=== PATIENT | female | born 1945 | race African-American/Black ===

== ENCOUNTER 2021-12-07 13:35 | Emergency (ER) | payer OTHER, SELFPAY ==
[2021-12-07 13:47] VITALS: BP 129/71; PULSE 83; RESP 16; TEMP 36.9; O2SAT 99
--- NOTE | 2021-12-07 13:55 | ED.GENADULT ---
HPI - General Adult General Chief complaint: Headache Stated complaint: Headache/Weakness Time Seen by Provider: 12/07/21 14:02 Source: patient and RN notes reviewed Mode of arrival: ambulatory Limitations: no limitations History of Present Illness HPI narrative: 76-year-old female presented for complaint of malaise, body aches, sinus pressure/congestion, chills. Worsening over the past 4 days. She is not vaccinated for Covid or flu. 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 She denies nausea, vomiting, diarrhea, chest pain, shortness of breath or wheezing. She endorses a history of pneumonia several times per year, but denies similar symptoms at this time. Has not taken anything for symptoms and declines to do so. Related Data Home Medications Medication Instructions Recorded Confirmed No Home Medications 12/07/21 12/07/21 Allergies Allergy/AdvReac Type Severity Reaction Status Date / Time No Known Allergies Allergy Verified 12/07/21 14:07 Review of Systems Review of Systems: CONSTITUTIONAL: Endorses malaise, chills EYES: Denies visual changes, redness, or discharge ENT: Reports rhinorrhea, congestion denies sinus pain, otalgia, sore throat CARDIOVASCULAR: Denies chest pain, palpitations, edema RESPIRATORY:Reports post nasal drainage. Denies dyspnea, cough GASTROINTESTINAL: Denies abdominal pain, nausea, vomiting, diarrhea SKIN: Denies rash or itching MUSCULOSKELETAL: Endorses myalgia NEUROLOGIC: Denies headache Exam Narrative: GENERAL: Ill-appearing, no acute distress. HEAD: Normocephalic EYES: PERRLA, conjunctivae clear ENT: Mucous membranes moist. TM pearly dash with dull light reflex bilaterally; no tragal tenderness. Oropharynx erythematous without lesions or exudate, no drooling, no hoarseness, no trismus, uvula midline. NECK: Supple. No lymphadenopathy CHEST: Clear to auscultation, breath sounds equal. No wheezing, rhonchi, rales, or stridor. No respiratory distress, speaks in full sentences. HEART: Regular rate and rhythm. No murmur heard. SKIN: Warm, dry, no rash. NEURO: Alert and oriented x3. PSYCH: Normal mood and affect Course Course Emergency Course: covid and flu neg, PCR sent Patient is aware of diagnosis, understands and agrees to treatment plan. Anticipatory guidance given. Patient agrees to follow-up as directed and is aware of reasons to seek care at the emergency department. Portions of this record may have been created with voice recognition software Level of Care: Express Care Visit Vital Signs Vital signs: Vital Signs Temperature 98.5 F 12/07/21 13:47 Pulse Rate 83 12/07/21 13:47 Respiratory Rate 16 12/07/21 13:47 Blood Pressure 129/71 12/07/21 13:47 Pulse Oximetry 99 12/07/21 13:47 Temperature 98.5 F 12/07/21 13:47 Pulse Rate 83 12/07/21 13:47 Respiratory Rate 16 12/07/21 13:47 Blood Pressure 129/71 12/07/21 13:47 Pulse Oximetry 99 12/07/21 13:47 reviewed Medical Decision Making Differential Diagnosis Differential Diagnosis: influenza, covid, sinusitis, OM, strep pharyngitis, URI Vital Signs Vital Signs: Vital Signs Temperature 98.5 F 12/07/21 13:47 Pulse Rate 83 12/07/21 13:47 Respiratory Rate 16 12/07/21 13:47 Blood Pressure 129/71 12/07/21 13:47 Pulse Oximetry 99 12/07/21 13:47 Temperature 98.5 F 12/07/21 13:47 Pulse Rate 83 12/07/21 13:47 Respiratory Rate 16 12/07/21 13:47 Blood Pressure 129/71 12/07/21 13:47 Pulse Oximetry 99 12/07/21 13:47 Lab Data Labs: Influenza A Screen Negative Reference Range: Negative Influenza B Screen Negative Reference Range: Negative Discharge Plan Discharge Clinical Impression: URI (upper respiratory infection) Qualifiers: URI type: unspecified URI Qualified Code(s): J06.9 - Acute upper respiratory infection, unspecified Pat
[2021-12-08 17:38] LABS: SARS-CoV-2 RNA PCR Negative
== END 2021-12-07 14:30 | disposition home or self-care (01) ==
PROVIDERS: Emergency Provider Nurse Practitioner Family
DX: J06.9 Acute upper respiratory infection, unspecified (principal); Z20.822 Contact with and (suspected) exposure to COVID-19
CPT/HCPCS: 87426; 87804; 99213; C9803; G0463; U0003; U0005

== ENCOUNTER 2024-08-06 16:41 | Outpatient (CLI) | payer OTHER, SELFPAY ==
--- NOTE | ~2024-08-06 | XR_ITS ---
[id number] Ordering provider: Soraya Escalera DO History: . M79.672 - Pain in left foot . Comparison: None. FINDINGS: BONES: No acute fracture or dislocation. JOINT SPACES: Narrowing of the proximal and distal interphalangeal joints. Osteoarthritic changes of the first tarsometatarsal joint. No tarsal coalition. SOFT TISSUES: Normal. Calcaneus spur. Ossification of the insertion of the tendo Achilles. IMPRESSION: No acute osseous abnormality left foot. Reviewed, dictated and finalized at location A.
--- NOTE | ~2024-08-06 | XR_ITS ---
XR knee RT min 4V Ordering provider: Soraya Escalera DO History: . Pain in right knee . Comparison: None. FINDINGS: BONES: No acute fracture or dislocation. JOINT SPACES: Narrowing of the lateral compartment. Marginal slice in the patella. SOFT TISSUES: Normal. IMPRESSION: No acute osseous abnormality right knee. Severe osteoarthritic changes. Reviewed, dictated and finalized at location A.
== END 2024-08-06 16:42 | disposition home or self-care (01) ==
LOC: MICIMG 16:41
PROVIDERS: PCP Family Medicine; Visit Provider Family Medicine
DX: M25.561 Pain in right knee (principal); M79.672 Pain in left foot
CPT/HCPCS: 73564; 73630

== ENCOUNTER 2024-11-10 16:32 | Outpatient (CLI) | payer OTHER, SELFPAY ==
--- OUTSIDE RECORDS SUMMARY | 2024-11-10 16:52 | XMS_ITS | Clinical Summary ---
Author Organization [facility] Address [address] [place] [address] Phone Care Team Providers Care Deliverer Pharmacy Name Role Phone Soraya Escalera DO Primary Care Provider [phone]- [phone] Allergies Active Allergy Reactions Criticality Noted Date Comments Sulfa Antibiotics Rash High 02/09/2009 Medications No known medications Active Problems No known active problems Social History Tobacco Use Types Packs/Day Years Used Date Smoking Tobacco: Never Smokeless Tobacco: Never Tobacco Cessation:Counseling Given: Not Answered Comments Unknown Sex and Gender Information Value Date Recorded Sex Assigned at Not on file 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 Gender Identity Not on file Sexual Orientation Not on file Last Filed Vital Signs Vital Sign Reading Time Taken Comments Blood Pressure 138/78 06/06/2024 1:10 PM CDT Pulse 85 06/06/2024 1:10 PM CDT Temperature 36.6 ??C (97.8 ??F) 06/06/2024 1:10 PM CD T Respiratory Rate 14 06/06/2024 1:10 PM CDT Oxygen Saturation 97% 06/06/2024 1:10 PM CDT Inhaled Oxygen Concentration - - Weight - - Height - - Body Mass Index - - Plan of Treatment Health Maintenance Due Date Last Done Comments DEXA Bone Density 1945 Hepatitis C Virus (HCV) Screening 1945 TdaP Immunization 1945 Pneumococcal Immunization (5 0+ years) (1 of 1 - PCV) 1997 Zoster Immunization (1 of 2) 1997 Respiratory Syncytial Virus (RSV) Immunization (Adult) (1 - 1-dose 75+ series) 2022 Influenza Immunization (#1) 2024 SARS-COV-2 Immunization (2023- season) 2024 Hepatitis B Immunization Aged Out No longer eligible based on patient's age to complete this topic Meningococcal Immunization (ACWY) Aged Out No longer eligible based on patient's age to complete this topic Rotavirus Immunization Aged Out No lo nger eligible based on patient's age to complete this topic Insurance MEDICARE C [employer] Care Teams Deliverer Pharmacy Relationship Specialty Start Date End Date Soraya Escalera DO [address] [place] [address] PCP - General Family Medicine 06/06/24
--- OUTSIDE RECORDS SUMMARY | 2024-11-10 16:52 | XMS_ITS | Referral Summary ---
Author Organization [facility] Address [address] [facility] [place] [address] Care Team Providers Care Human Capital Manager Name Role Phone Maria E Land DO Primary Care Provider [phone]- [phone] Allergies Active Allergy Reactions Criticality Noted Date Comments Sulfa (Sulfonamide Antibiotics) Rash Medium 01/12 Medications meclizine (ANTIVERT) 25 mg tablet Take 1 tablet (25 mg total) by mouth 3 (three) times a day as needed for dizziness 30 tablet 0 Active cyclobenzaprine (FLEXERIL) 5 mg tablet Take 1 tablet (5 mg total) by mouth 3 (three) times a day as needed for muscle spasms 30 tablet 3 Active Social History Tobacco Use Types Packs/Day Years Used Date Smoking Tobacco: Never Assessed Personal Safety Answer Date Recorded Have you ever been in or are you currently in a harmful physical or emotional relationship or is someone making you feel afraid or unsafe? 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 Gender Identity Not on file Sexual Orientation Not on file Last Filed Vital Signs Vital Sign Reading Time Taken Comments Blood Pressure 156/78 02/23/2023 3:15 AM CDT Pulse 73 02/23/2023 3:15 AM CDT Temperature 36.8 ??C (98.2 ??F) 02/23/2023 3:15 AM CD T Respiratory Rate 16 02/23/2023 3:15 AM CDT Oxygen Saturation 99% 02/23/2023 3:15 AM CDT Inhaled Oxygen Concentration - - Weight 83.9 kg (185 lb) 02/22/2023 9:07 PM CDT Height 177.8 cm (5' 10 ) 02/22/2023 9:07 PM CDT Body Mass Index 26.54 02/22/2023 9:07 PM CDT Plan of Treatment Not on file Insurance [facility] Care Teams Human Capital Manager Relationship Specialty Start Date End Date Maria E Land DO [address] [facility] [address] [place] [address] PCP - General 02/02/20
--- OUTSIDE RECORDS SUMMARY | 2024-11-10 16:52 | XMS_ITS | Clinical Summary ---
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 Gender Identity Not on file Sexual Orientation Not on file Obstetrics History Last Filed Vital Signs Vital Sign Reading [...] 02/22/2023 9:07 PM CDT Plan of Treatment Health Maintenance Due Date Last Done Comments Depression Screening 1945 Fall Risk Assessment 1945 Hepatitis C Screening 1945 Osteoporosis Screening-Bone Density Scan 1945 DTaP/Tdap/Td Vaccine (1 - Tdap) 1958 Hepatitis B Screening 1965 Zoster Vaccine (1 of 2) 1997 Pneumococcal vaccine 65+ (1 of 1 - PCV) 2012 Well Visit 65+ 2012 Influenza Vaccine (#1) 2024 Insurance [facility] Care Teams Maintainer Sewer And Waterworks Relationship Specialty Start Date End Date Maria E Land DO [address] [address] PCP - General 02/02/20
[2024-11-10 17:38] LABS: Influenza A QL RT-PCR Negative (Negative); Influenza B QL RT-PCR Negative (Negative); RSV RNA, RT-PCR Negative (Negative); SARS-CoV-2 RNA PCR Positive (Negative)
== END 2024-11-10 16:33 | disposition home or self-care (01) ==
LOC: ANHLAB 16:33
PROVIDERS: PCP Family Medicine; Visit Provider Nurse Practitioner
DX: U07.1 COVID-19 (principal)
CPT/HCPCS: 87637

== ENCOUNTER 2024-11-10 17:25 | Emergency (ER) | payer OTHER, SELFPAY ==
--- NOTE | ~2024-11-10 | XR_ITS ---
EXAMINATION: XR chest 2V DATE: 11/10/2024 18:37 INDICATION: Chest pain. Shortness of breath. TECHNIQUE: Frontal and lateral views of the chest were obtained. COMPARISON: None. FINDINGS: There is no pneumonia, pleural effusion, or pneumothorax. Cardiomegaly is noted. IMPRESSION: 1. Cardiomegaly. Reviewed, dictated and finalized at location A. TIFICATION AND RECORDS COMMANDER IMPRESSION: 1. Cardiomegaly.
--- NOTE | 2024-11-10 17:27 | ECG_ITS ---
Test Date: 2024-11-10 17:39:44 Measurements Intervals Robert Rate: 75 P: 74 MN: 134 QRS: 49 QRSD: 77 T: 48 QT: 352 QTc: 395 Interpretive Statements SINUS RHYTHM WITH MARKED SINUS ARRHYTHMIA LEFT ATRIAL ENLARGEMENT [-0.15mV P WAVE IN V1/V2] POSSIBLE LEFT VENTRICULAR HYPERTROPHY [VOLTAGE CRITERIA PLUS LAE OR QRS WIDENING] No previous ECG available for comparison Electronically Signed On 11-11-2024 11:32:36 MID LEVEL BUSINESS ANALYST by Bi Capone M.D.
--- OUTSIDE RECORDS SUMMARY | 2024-11-10 17:27 | XMS_ITS | Encounter Summary ---
Author Organization [facility] Address [address] [place] [address] Care Team Providers Care Grizzlyman Name Role Phone Sary Perez DO Primary Care Provider [phone] Encounter Details Date Type Department Care Team (Latest Contact Info) Description 02/14/2009 Outpatient Historical [facility], [address] [place] [address] 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
--- OUTSIDE RECORDS SUMMARY | 2024-11-10 17:27 | XMS_ITS | Clinical Summary ---
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 Care Teams Hotel Supplies Salesperson Relationship Specialty Start Date End Date Maria E Land DO [address] [address] PCP - General 02/02/20
--- OUTSIDE RECORDS SUMMARY | 2024-11-10 17:27 | XMS_ITS | Clinical Summary ---
Author Organization [facility] Address [address] [place] [address] Phone Care Team Providers Care Environmental Protection Economist Name Role Phone Soraya Escalera DO Primary Care Provider [phone] Allergies Active Allergy Reactions Criticality Noted Date Comments Sulfa Antibiotics Rash High 02/09/2009 Medications No known medications Active Problems No known active problems Social History Tobacco Use Types Packs/Day Years Used Date Smoking Tobacco: Never Smokeless Tobacco: Never Tobacco Cessation:Counseling Given: Not Answered Comments Unknown Sex and Gender Information Value Date Recorded Sex Assigned at Not on file Legal Sex Female 1:06 PM ENTRY MANAGER Gender Identity Not on file Sexual [...] topic Insurance MEDICARE C [employer] Care Teams Environmental Protection Economist Relationship Specialty Start Date End Date Soraya Escalera DO [address] [place] [address] PCP - General Family Medicine 06/06/24
--- OUTSIDE RECORDS SUMMARY | 2024-11-10 17:27 | XMS_ITS | Clinical Summary ---
Author Organization [facility] [place] Address [address] [place] [address] Care Team Providers Care Claim Review Medical Director Name Role Phone Unavailable Primary Care Provider Unavailabl e Allergies Active Allergy Reactions Criticality Noted Date Comments Sulfa (Sulfonamide Antibiotics) Rash High 01/13 Medications famotidine (PEPCID) 20 mg Oral tablet Take 1 Tab by mouth 2 times daily. 20 Tab 0 03/02/2012 Active Active Problems Problem Noted Date Diagnosed Date GERD (gastroesophageal reflux disease) 2 Chest pain 03/01/2012 Generalized weakness 03/01/2012 Dehydration 03/01/2012 UTI (lower urinary tract infection)-possible Nausea 03/01/2012 Hypertension 02/14/2009 Family History Medical History Relation Name Comments Cancer Brother sarcoma Other Brother lupus Heart Disease Father CHF Heart Disease Mother Hypertension Mother Lung Cancer Mother non-smoker Stroke Mother Relation Name Status Comments Brother Father Mother Alive Social History Tobacco Use Types Packs/Day Years Used Date Smoking Tobacco: Never Alcohol Use Standard Drinks/Week Comments No 0 (1 standard drink = 0.6 oz pur e alcohol) Comments No Sex and Gender Information Value Date Recorded Sex Assigned at Not on file Legal Sex Female 5:43 AM STUDENT TEACHING COORDINATOR Gender Identity Not on file Sexual Orientation Not on file Occupation Industry Job Start Date Job End Date Not on file Not on file Not on file Not on file Last Filed Vital Signs Vital Sign Reading Time Taken Comments Blood Pressure 131/85 03/02/2012 12:44 PM CDT Pulse 73 03/02/2012 12:44 PM CDT Temperature 36.4 ??C (97.6 ??F) 03/02/2012 12:44 PM C DT Respiratory Rate 16 03/02/2012 12:44 PM CDT Oxygen Saturation 98% 03/02/2012 12:44 PM CDT Inhaled Oxygen Concentration - - Weight 77.2 kg (170 lb 3.2 oz) 03/02/2012 5:21 A M CDT Height 177.8 cm (5' 10 ) 03/01/2012 12:52 AM CDT Body Mass Index 24.42 03/01/2012 12:52 AM CDT Plan of Treatment Health Maintenance Due Date Last Done Comments DTAP/TDAP/TD VACCINES (1 - Tdap) 1966 PNEUMOCOCCAL VACCINE 65+ YEARS (1 of 1 - PCV) 04/16/19 97 ZOSTER VACCINE (1 of 2) 1997 OSTEOPOROSIS SCREENING 2012 RSV VACCINE (60+ or ) (1 - 1-dose 75+ series) 2022 INFLUENZA VACCINE (#1) 2024 COLORECTAL SCREENING Discontinued 06/14/2022 Colorectal Cancer Screening Discontinued FIT-DNA Q 3 years Discontinued FIT/FOBT Q 1 year Discontinued Flex Sig/CT Colonography Q 5 years Discontinued Insurance [facility] Address: [facility] [address] [place] [address] Advance Directives For more information, please contact: [phone] * Full Code (Latest Code Status on File) Date Activated Date Inactivated Comments 03/01/2012 11:22 AM 03/02/2012 5:03 PM
--- OUTSIDE RECORDS SUMMARY | 2024-11-10 17:27 | XMS_ITS | Referral Summary ---
Author Organization [facility] Address [address] [facility] [place] [address] Care Team Providers Care Security Escort Name Role Phone Maria E Land DO Primary Care Provider +1- [phone] Allergies Active Allergy Reactions Criticality Noted Date [...] on file Legal Sex Female 8:25 PM TORCH CUTTER Gender Identity Not on file Sexual Orientation [...] Plan of Treatment Not on file Insurance [facility] Care Teams Security Escort Relationship Specialty Start Date End Date Maria E Land DO [address] [facility] [address] [place] [address] PCP - General 02/02/20
--- NOTE | 2024-11-10 17:45 | ED.CHESTPAIN ---
HPI - Chest Pain General Chief Complaint: Chest Pain Stated Complaint: covid +, sob Focused HPI: This is a 79-year-old female with no pertinent PMH who presents to the ED for chief complaint of left-sided shoulder and arm pain beginning today. States that she has been feeling sick with URI symptoms for the past few days and had on test positive for COVID. States the aching started in the left shoulder today and is associated with shortness of breath. She states that she has been coughing a lot and is concern for pneumonia. Denies immunocompromised condition. Denies fevers, chills, nausea, vomiting. GENERAL: Well-appearing, well-nourished, and in no acute distress. HEAD: Normocephalic, atraumatic. CHEST: Clear to auscultation. No respiratory distress. HEART: Regular rate and rhythm. NEURO: Alert and oriented x3. Patient screened in triage and initial orders placed. Additional care and disposition to be based upon diagnostic testing and treatment. Source: patient Mode of arrival: ambulatory Limitations: no limitations Related Data Home Medications ?Medication ?Instructions ?Recorded ?Confirmed ?Last Taken ?Type No Home Medications 11/10/24 11/10/24 Unknown History Allergies Allergy/AdvReac Type Severity Reaction Status Date / Time Sulfa (Sulfonamide Allergy Intermediate Vomiting Verified 11/10/24 14:09 Antibiotics) [facility] Past Medical History Medical History Achilles tendonitis Rupture of anterior cruciate ligament of right knee Family History Family History Father Alcohol abuse Heart disease Mother Lung cancer Hypertension Heart disease Social History Social History Smoking status: Never smoker Alcohol intake: never Substance use: never Substance use type: does not use Lack of Transportation: No Lack of Food: Never True Current Housing: I Have Housing Concerned About Future Housing: No Difficulty Paying Gas/Electric Bills: No Difficulty Paying for Meds: No Currently Unemployed: No Education: Bachelor's Degree Difficulty w/ Childcare or Family Care: No Course Vital Signs Vital signs: Vital Signs Temperature 97.2 F L 11/10/24 17:52 Pulse Rate 91 11/10/24 17:52 Respiratory Rate 20 11/10/24 17:52 Blood Pressure 148/86 H 11/10/24 17:52 Pulse Oximetry 100 11/10/24 17:52 Oxygen Delivery Room Air 11/10/24 17:52 Temperature 97.2 F L 11/10/24 17:52 Pulse Rate 91 11/10/24 17:52 Respiratory Rate 20 11/10/24 17:52 Blood Pressure 148/86 H 11/10/24 17:52 Pulse Oximetry 100 11/10/24 17:52 Oxygen Delivery Room Air 11/10/24 17:52 MDM - Chest Pain Lab Data 11/10/24 18:02 11/10/24 19:32 Labs: Lab Results 11/10/24 11/10/24 Range/Units 18:02 19:32 WBC 5.1 (4.5-10.0) K/mm3 RBC 4.49 (4.2-5.4) M/mm3 Hgb 13.8 (12.0-15.0) g/dL Hct 41.2 (37.0-47.0) % MCV 91.8 (80-100) fl MCH 30.7 (26-34) pg MCHC 33.5 (32-36) g/dl RDW 11.9 (11.5-14.5) % Plt Count 203 (150-375) k/mm3 MPV 11.1 H (7.4-10.4) fl Immature Gran % (Auto) 0.2 (0-0.5) % Neut % (Auto) 56.6 (45.5-73.1) % Lymph % (Auto) 31.2 (18.3-44.2) % [place] % (Auto) 10.0 H (2.6-8.5) % Eos % (Auto) 1.4 (0-4.4) % Baso % (Auto) 0.6 (0.2-1.2) % Lymph # (Auto) 1.59 (0.9-3.2) K/mm3 [place] # (Auto) 0.5 (0.1-0.6) K/mm3 Eos # (Auto) 0.1 (0-0.3) K/mm3 Baso # (Auto) 0.0 (0.0-0.1) K/mm3 Abs Immat Gran (auto) 0.01 (0.00-0.031) K/mm3 Absolute Neuts (auto) 2.9 (1.3-6.7) K/mm3 Absolute Nucleated RBC 0.000 (0.0-0.012) K/mm3 Nucleated RBC % 0.0 (0.0-0.2) % PT 14.0 (11.1-14.7) Seconds INR 1.0 APTT 26.0 (22.3-36.8) Seconds Sodium 142 (137-145) mmol/L Potassium 3.8 (3.4-5.0) mmol/L Chloride 103 (98-107) mmol/L Carbon Dioxide 32 H (22-30) mmol/L Anion Gap 7 (4-12) mmol/L BUN 17 (7-17) mg/dL Creatinine 0.80 (0.7-1.0) mg/dL Estim Creat Clear Calc 54 ml/min Estimated GFR > 60 (59 - ) Glucose 106 (65-110) mg/dL Calcium 9.3 (8.4-10.2) mg/dL Total Bilirubin 0.5 (0.2-1.3) mg/dL AST 22 (14-36) U/L ALT 15 (6-35) U/L Alkaline Phosphatase 122 (38-126) U/L Troponin I < 0.012 (0.000-0.034) ng/mL Total Protein 7.0 (6.3-8.2) g/dL Albumin 4.0 (3.5-5.1) g/dL Lipase 118 (23-300) U/L Discharge Plan Discharge Clinical Impression: Acute viral syndrome Patient Disposition: Elopement After Seen by Prov Condition: Stable Patient Language: Divehi Prescriptions: No Action No Home Medications Follow-up/Referrals: Soraya Escalera DO [Primary Care Provider] -
[2024-11-10 17:52] VITALS: BP 148/86; PULSE 91; RESP 20; TEMP 36.2; O2SAT 100
[2024-11-10 18:12] LABS: Basophils Percent Auto 0.6 % (0.2-1.2); Eosinophils Absolute Auto 0.1 K/mm3 (0-0.3); Eosinophils Percent Auto 1.4 % (0-4.4); Hematocrit 41.2 % (37.0-47.0); Hemoglobin 13.8 g/dL (12.0-15.0); Immature Granulocyte Absolute 0.01 K/mm3 (0.00-0.031); Immature Granulocyte Percent A 0.2 % (0-0.5); Lymphocytes Absolute Auto 1.59 K/mm3 (0.9-3.2); Lymphocytes Percent Auto 31.2 % (18.3-44.2); Mean Corpuscular HGB Conc 33.5 g/dl (32-36); Mean Corpuscular Hemoglobin 30.7 pg (26-34); Mean Corpuscular Volume 91.8 fl (80-100); Mean Platelet Volume 11.1 fl (7.4-10.4); Monocytes Absolute Auto 0.5 K/mm3 (0.1-0.6); Neutrophils Absolute Auto 2.9 K/mm3 (1.3-6.7); Neutrophils Percent Auto 56.6 % (45.5-73.1); Platelet Count Result 203 k/mm3 (150-375); Red Blood Count 4.49 M/mm3 (4.2-5.4); Red Cell Distribution Width 11.9 % (11.5-14.5); White Blood Count 5.1 K/mm3 (4.5-10.0)
[2024-11-10 19:59] LABS: Alanine Aminotransferase 15 U/L (6-35); Alkaline Phosphatase 122 U/L (38-126); Anion Gap 7 mmol/L (4-12); Aspartate Amino Transferase 22 U/L (14-36); Bilirubin,Total 0.5 mg/dL (0.2-1.3); Blood Urea Nitrogen 17 mg/dL (7-17); Calcium 9.3 mg/dL (8.4-10.2); Carbon Dioxide 32 mmol/L (22-30); Chloride 103 mmol/L (98-107); Estimated CRCL calculation 54 ml/min; Estimated Glomerular Filt Rate > 60; Glucose 106 mg/dL (65-110); Lipase 118 U/L (23-300); Potassium 3.8 mmol/L (3.4-5.0); Sodium 142 mmol/L (137-145)
[2024-11-10 20:10] LABS: Troponin I < 0.012 ng/mL (0.000-0.034)
--- NOTE | 2024-11-10 21:00 | PC.NURSE ---
Patient up to triage desk with stating she wants to leave and does not want to be here until 0100. This RN explained to patient the seriousness of chest pain and the importance of discussing results with a physician. Patient states she would still like to leave. Instructed patient to come back to ED or call 911 if symptoms worsen. Patient plans to follow up with PCP.
--- OUTSIDE RECORDS SUMMARY | 2024-11-10 21:41 | XMS_ITS | Clinical Summary ---
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
--- OUTSIDE RECORDS SUMMARY | 2024-11-10 21:41 | XMS_ITS | Encounter Summary ---
Author Organization [employer] Address [address] [place] [address] Care Team Providers Care Group Sales Representative Name Role Phone Sary Perez DO Primary Care Provider [phone] Encounter Details Date Type Department Care Team (Latest Contact Info) Description 02/14/2009 Outpatient Historical [facility], [address] [place] [address] [facility] [place] [address] Screening for Malignant Neoplasm of the Cervix Social History Tobacco Use Types Packs/Day Years Used Date Smoking Tobacco: Never Alcohol Use Standard Drinks/Week Comments No 0 (1 standard drink = 0.6 oz pur e alcohol) Comments No Sex and Gender Information Value Date Recorded Sex Assigned at Not on file Legal Sex Female 5:43 AM MANAGER SUPPLY CHAIN PLANNING Gender Identity Not on file Sexual Orientation Not on file documented as of this encounter Plan of Treatment Not on file documented as of this encounter Visit Diagnoses Diagnosis Screening for malignant neoplasm of the cervix documented in this encounter Care Teams Group Sales Representative Relationship Specialty [place] [address] [facility] [address] [place] [address] PCP - General 02/07/09 02/28/12 documented as of this encounter
--- OUTSIDE RECORDS SUMMARY | 2024-11-10 21:41 | XMS_ITS | Clinical Summary ---
Author Organization [facility] Address [address] [place] [address] Phone Care Team Providers Care Operations [place] Name Role Phone Soraya Escalera DO Primary Care Provider [phone] Allergies Active Allergy Reactions Criticality Noted Date Comments Sulfa Antibiotics Rash High 02/09/2009 Medications No known medications Active Problems No known active problems Social History Tobacco Use Types Packs/Day Years Used Date Smoking Tobacco: Never Smokeless Tobacco: Never Tobacco Cessation:Counseling Given: Not Answered Comments Unknown Sex and Gender Information Value Date Recorded Sex Assigned at Not on file Legal Sex Female 1:06 PM [employer] Gender Identity Not on file Sexual Orientation [...] topic Insurance MEDICARE C [place] Care Teams Operations [place] Relationship Specialty Start Date End Date Soraya Escalera DO [address] [place] [address] PCP - General Family Medicine 06/06/24
--- OUTSIDE RECORDS SUMMARY | 2024-11-10 21:41 | XMS_ITS | Continuity of Care Document ---
Author Organization [facility] Address [address] [place] [address] Phone Care Team Providers Care Assistant Printer Floor Covering Name Role Phone Sewing Maria E BRENNAN Unavailable Unavailable Allergies, Adverse Reactions, Alerts Substance Reaction Status Criticality Sulfa (Sulfonamide Antibiotics) rash(moderate) Active No Information Medications Medication Instructions Dosage Effective Dates (start - stop) Status Comments LOSARTAN POTASSIUM 25 MG TAB TAKE 1 TABLET BY MOUTH EVERY DAY - Active hydrochlorothiazide 12.5 mg tablet take 1 tablet by oral route every day 12.5 MG - Active B Complex tablet,extended release - Active OTC Vitamin C 500 mg tablet take 1 tablet by oral route 2 times every day 1 tablet - Active OTC Plavix 75 mg tablet take 1 tablet by oral route every day 75 MG - Active Aspirin Low Dose 81 mg tablet,delayed release take 1 tablet by oral route every day 81 MG - Active Vitamin D3 4,000 unit capsule Take 1 capsule daily - Active Procedures Procedure Date [facility] MED/CURRENT MED MERGE [facility] MED/CURRENT MED MERGE SARS-CoV-2 [COVID-19], Flu A&B Multiplex IA Antigen CBC, INC PLATELETS AND DIFFERENTIAL COMPREHEN METABOLIC PANEL CMP LIPID PANEL MICROALBUMIN, QN (URINE) CREATININE, (U-R) THYROID STIMULATION HORMONE(TSH) 2021 VITAMIN D, 25-HYDROXY ROUTINE VENIPUNCTURE OFFICE [id number]-[id number]-PXUXARAI BODY MASS INDEX DOCD SYST BP GE 130 - 139MM HG DIAST BP >= 90 MM HG SCREENING COLONOSCOPY (NOT HIGH RISK) Se p- OFFICE RQRGS-SSE-BELTDFXO OFFICE YAHRN-EYE-WPAURLFH BODY MASS INDEX DOCD SYST BP >= 140 MM HG6 IT DIAST BP 80-89 MM HG CBC, INC PLATELETS AND DIFFERENTIAL COMPREHEN METABOLIC PANEL CMP HEMOGLOBIN A1C HGA1C, GLYCO LIPID PANEL THYROID STIMULATION HORMONE(TSH) 2021 VITAMIN D, 25-HYDROXY ROUTINE VENIPUNCTURE Kept Appointment No Charge Encounter Jul BASIC METABOLIC PANEL(BMP) ROUTINE VENIPUNCTURE FALL RISK ASSESSMENT DOC'D PRES/ABSN URINE INCON ASSESS Pt inelig neg scrn depres SYST BP >= 140 MM HG6 IT DIAST BP 80-89 MM HG Transitional Care- First 7 Days Of Disch arge BODY MASS INDEX DOCD SYST BP >= 140 MM HG6 IT DIAST BP 80-89 MM HG CBC, INC PLATELETS AND DIFFERENTIAL COMPREHEN METABOLIC PANEL CMP VITAMIN D, 25-HYDROXY ROUTINE VENIPUNCTURE OFFICE UARCP-UCX-BOSPMAZY INFLUENZA, RAPID INFLUENZA B, RAPID - OFFICE LAB 020 RAPID STREP A Specimen collection for COVID-19, Any So urce [facility] MED/CURRENT MED MERGE Advance Directives Directive Yes / No Effective Date File Name No Information Encounters Encounter Description Practice Location Reason(s) For Visit Diagnoses Date Provider Providers Copied on Encounter [facility], [address], [place], [place], [address] , tel: [phone] [place] No Information 3 Sewing Maria E. [address], [address], [place], [place], [address], . tel:[phone] [facility], [address], [place], [place], [address] , tel: [phone] [place] Thyroid nodule 3 Sewing Maria E. [address], [place], [place], [address], . tel:[phone] [facility], [address], [place], [place], [address] , tel: [phone] [place] No Information 3 Sewing Maria E. [address], [place], [place], [address], [place]. tel:[phone] Referring Provider: Maria E Land, [address] [place] [address], [place], [address] . tel:[phone] OFFICE SXACC-GMP-YOJ J LUIS [facility], [address], [place], [place], [address] , tel:[phone] [place] Patient encounter (chief complaint) Body mass index [BMI] 27.0-27.9, adultEssential hypertensionHx of ischemic multifocal multiple vascular territories strokePatient' s noncompliance with other medical treatment and regimen due to unspecified reasonAcute non-recurrent maxillary sinusitisVitam in D deficiency 2 Maxine Hart. [address], [place], [place], [address], . tel:[phone] Referring Provider: Maria E Land, [address] [place] [address], [place], [address] . tel:[phone] [facility], [address], [place], [place], [address] , [place] [phone] [facility] No Information 2 Abdifatah Farah. [address] [facility], [address], [place], [place], [address], [place]. tel:[phone] Referring Provider: Maria E Land, [address] [place] [address], [place], [address] . tel:[phone] [facility], [address], [place], [place], [address] , [place] [phone] [place] Encounter for screening for malignant neoplasm of colon 2 Calebing Maria E[address] [facility] [address] [address], [place], [place], [address], [place]. tel:[phone] OFFICE RUTGT-DLJ-QBR ANDED [facility], [address], [place], [place], [address] , [place] [phone] [place] Patient encounter (chief complaint) COVID-19Acute non-recurrent maxillary sinusitis 2 Maxine Hailey. [address], [place], [place], [address], [place]. tel:[phone] Referring Provider: Maria E Land, [address] [place] [address], [place], [address] . tel:[phone] OFFICE ZGVRZ-ISD-YLQ J [facility], [address], [place], [place], [address] , [place] [phone] [place] chronic conditions (chief complaint) Hx of ischemic multifocal multiple vascular territories strokeEssentia l hypertensionVi tamin D deficiencyBody mass index [BMI] 27.0-27.9, adultHistory of noncompliance with medical treatmentEncou nter for screening for diabetes mellitusEncoun ter for screening mammogram for malignant neoplasm of breastEncounte r for screening for malignant neoplasm of colon [address] [facility] [address], [facility] [address], [place], [place], [address], [place]. tel:[phone] Referring Provider: Maria E Land, [address] [place] [address], [place], [address] . tel:[phone] [facility], [address], [place], [place], [address] , tel: [phone] [facility] No Information 1 Dago Serrano. [address] [place] [address], [place] [address], [place], [place], [address], . tel:[phone] [facility], [address], [place], [place], [address] , tel: [phone] [place] No Information 1 Calebing Maria E. [address] [place] [address], [place], [place], [address], . tel:[phone] Referring Provider: Maria E Land, [address] [place] [address], [place], [address] . tel:[phone] [facility], [address], [place], [place], [address] , tel: [phone] [place] Hypertension, unspecified typeFamily history of G6PD Calebing Maria E. [address] [place] [address], [place], [place], [address], . tel:[phone] Referring Provider: Maria E Land, [address] [place] [address], [place], [address] . tel:[phone] [facility], [address], [place], [place], [address] , tel: [phone] [place] Right hemiparesisWea knessOnychomyc osisPain of foot, unspecified laterality Calebing Maria E. [address] [place] [address], [place], [place], [address], . tel:[phone] Transitional Care- First 7 Days Of Discharge [facility], [address], [place], [place], [address] , tel: [phone] [place] hosp f/u (chief complaint) Body mass index (BMI) 28.0-28.9, adultHx of ischemic multifocal multiple vascular territories strokeHospital discharge follow-upHyper tension, unspecified typeSyncope, unspecified syncope typeRight hemiparesisVit griffin D deficiency 1 Dago Serrano. [address] [place] [address], [facility] [address], [place], [place], [address], [place]. tel:[phone] Referring Provider: Maria E Land, [address] [place] [address], [place], [address] . tel:[phone] OFFICE RKRAS-POA-TYB ANDED [facility], [address], [place], [place], [address] , [place] tel: [phone] [place] cc (chief complaint) Allergic rhinitis, unspecified allergic rhinitis typeVitamin D deficiencyFati robert, unspecified type 0 Sewing Maria E. [address] [place] [address], [place] [address], [place], [place], [address], [place]. tel:[phone] Referring Provider: Maria E Land, [address] [place] [address], [place], [address] . tel:[phone] [facility], [address], [place], [place], [address] , [place] tel: [phone] [facility] No Information 0 Sewing Maria E. [address] [place] [address], [place] [address], [place], [address], [place]. tel:[phone] Referring Provider: Maria E Land, [address] [place] [address], [place], [address] . tel:[phone] [facility], [address], [place], [address] , [place] tel: [phone] [place] Exposure to COVID-19 virus 0 Sewing Maria E. [address] [place] [address], [place] [address], [place], [place], [address], [place]. tel:[phone] [facility], [address], [place], [address] , [place] tel: [phone] [facility] No Information 0 Yoandy Rizvi. [address] [address], [place], [place], [address], . tel:[phone] Referring Provider: Maria E Land, [facility] [address], [place], [address] . tel:[phone] [facility], [address], [place], [place], [address] , tel: [phone] [place] No Information [address]erson[address] [facility] [address], [facility] [address], [place], [place], [address], [place]. tel:[phone] Referring Provider: Maria E Land, [facility] [address] [address], [place], [address] . tel:[phone] [facility], [address], [place], [place], [address] , tel: [phone] [place] Screening for breast cancer Emery Sanderson. [facility] [employer], [place] [address], [place], [place], [address], [place]. tel:[phone] [facility], [address], [place], [place], [address] , [place] tel: [phone] [place] Chronic conditions (chief complaint) Allergic rhinitis, unspecified allergic rhinitis typeVitamin D deficiencyBody mass index (BMI) 26.0-26.9, adultOverweigh tScreening for malignant neoplasm of colonEncounter for screening for endocrine disorderScreen ing for lipid disordersHisto ry of detached retina repairEncounte r for screening for diabetes mellitus [address] [facility] [employer], [place] [address], [place], [place], [address], [place]. tel:[phone] Referring Provider: Maria E Land, [facility] [address], [place], [address] . tel:[phone] [facility], [address], [place], [place], [address] , [place] tel: [phone] [place] Allergic rhinitis, unspecified allergic rhinitis typeVitamin D deficiencyEnco unter for screening for diabetes mellitusScreen ing for lipoid disordersEncou nter for screening for endocrine disorderEncoun ter for screening for malignant neoplasm of colon Jan- 8 Emery Sanderson. [address] [place] [address], [facility] [address], [place], [place], [address], [place]. tel:[phone] Referring Provider: Maria E Land, [address] [place] [address], [place], [address] . tel:[phone] [facility], [address], [place], [place], [address] , [place] tel: [phone] [place] Allergic rhinitis, unspecified allergic rhinitis typeVitamin D deficiencyBila teral edema of lower extremityEncou nter for screening for malignant neoplasm of colon Jan- 7 Calebing Maria E. [address], [facility] [address], [place], [place], [address], [place]. tel:[phone] Referring Provider: Maria E Land, [address] [place] [address], [place], [address] . tel:[phone] [facility], [address], [place], [place], [address] , [place] tel: [phone] [place] Chorioretinal scar of left eye after surgery for detachmentUnsp ecified visual disturbance 6 Calebing Maria E. [address], [facility] [address], [place], [place], [address], [place]. tel:[phone] [facility], [address], [place], [address] , [place] tel: [phone] [place] Acute maxillary sinusitis, recurrence not specifiedOnych omycosisVitami n D deficiency [address] [facility] [address], [place], [place], [address], [place]. tel:[phone] Referring Provider: Maria E Land, [facility] [address], [place], [address] . tel:[phone] [facility], [address], [place], [place], [address] , [place] tel: [phone] [place] Allergic rhinitis, unspecified allergic rhinitis typeAdult general medical examinationHx of sinusitisOnych omycosisEncoun ter for screening for malignant neoplasm of colon 6 Emery Sanderson. [address], [place], [place], [address], [place]. tel:[phone] Referring Provider: Maria E Land, [address], [place], [address] . tel:[phone] Family History Family Member Type Diagnosis Age At Onset Father Problem (finding) hypertension Mother Problem (finding) Allergies Mother Problem (finding) stroke Mother Problem (finding) malignant neoplasm of l michael Mother Problem (finding) hypertension Payers Payer name Insurance type Covered constitution party ID Authormoustapha farnsworth(s) [facility] [id number] Social History Type Description Quantity Date Captured Comments Alcohol Use Details Unknown Caffeine Use Details Unknown Tobacco Use Status No Information Smoking Status No Information Sex Female Sexual Orientation Choose not to disclose Gender Identity Female Chief Complaint And Reason For Visit No Information Reason For Referral Reason For Referral No Information Plan Of Treatment Date Type Action Status Goal Dietary manageme nt education, guidance, and counseling completed Goal Dietary manageme nt education, guidance, and counseling completed Goal Dietary manageme nt education, guidance, and counseling completed Goal Dietary manageme nt education, guidance, and counseling completed Referral Ordered: Thyroid ultrasound ordered Referral Referred To: Gagan Gardiner MD [address] [place] [address]
[facility] [address] [place], [place], [phone] Ordered: Referrals: Gastroenterology. Gagan Gardiner MD. Evaluation/diagnostic/treatment - Level 3 Appointment date/timeframe: 06/14/2022 ordered Referral Referred To: Gagan Gardiner MD [address] [facility] [address] [place], [place], [phone] Ordered: Referrals: Gastroenterology. Gagan Gardiner MD. Evaluation/diagnostic/treatment - Level 3 ordered Referral Ordered: SCREENING MAMMOGRAM (CAD) Bilateral breast ordered Referral Referred To: Physical Therapy [address] [place], [phone] Ordered: Referrals: Physical Therapy. Location: [facility] Physical Therapy [facility]. Evaluation/diagnostic/treatment - Level 3 ordered Referral Referred To: Meño Stewart DPM [address], [phone] Ordered: Referrals: Podiatry. Meño Stewart DPM. Evaluation/diagnostic/treatment - Level 3 Appointment date/timeframe: 05/28/2021 ordered Referral Referred To: Alfredo Bar MD [address] [place], [phone] Ordered: Referrals: Cardiology. Alfredo Bar MD. Evaluation/diagnostic/treatment - Level 3 ordered Referral Referred To: [address] [place], [phone] Ordered: Screening mammography of both breasts ordered Future Order: Radiology Order Th yroid ultrasound ([id number]), Sent on: Sent Future Order: Radiology Order SC REENING MAMMOGRAM (CAD) Bilateral breast ([id number]), Body Site: breast, Sent on: Sent History Of Present Illness Encounter Date Complaint History Of Prese nt Illness Patient encounter Chief complain t: chronic conditions.. chronic conditions Hx of ischemic vascular stroke/ Right Hemiparesis: No complaints in office today. Pt states that she no longer has any weakness of symptoms due to stroke. Weakness subsided about week after stroke incident. She never saw cardiology and never took Plavix. She declines any follow up on this. Thinks she was just dehydrated from lack of fluid in [place].Vit D: Pt is med compliant with Vit D supplement. HTN: 130/ 70ish when she check BP at home today. Pt initially said she was taking it and then later on says she actually does not take it and doesn't want to. Last visit, she declined amlodipine. Denies CP, SOB, lightheadedness.sinus sx: pt reports she has been having a lot of congestion, drainage, and sinus symptoms over the past 1 week. She had a low grade fever, 99.4*, with lots of drainage. She has been trying to rest and treat symptomatically. Patient encounter Chief complain t: Telehealth.Pt tested positive for COVID-19 4 days ago. She is having a lot of nasal congestion, drainage, and now some sinus pressure. R ear pain. She denies SOB or wheezing. No chest congestion. She has no fever or chills, some fatigue. She is resting and drinking lots of fluids to stay hydrated. chronic conditions Hx of ischemi c vascular stroke/ Right Hemiparesis: No complaints in office today. Pt states that she no longer has any weakness of symptoms due to stroke. Weakness subsided about week after stroke incident. She never saw cardiology and never took Plavix. She declines any follow up on this. Thinks she was just dehydrated from lack of fluid in [place].Vit D: Pt is med compliant with Vit D supplement. HTN: 130/ 70ish when she check BP at home today. Pt initially said she was taking it and then later on says she actually does not take it and doesn't want to. Last visit, she declined amlodipine. Denies CP, SOB, lightheadedness. hosp f/u Stroke/ Hosp fu: Pt was in [place] and had a severe headache and couldn't control her R arm. Pt states that she was feeling normal and healthy in [place] up until the headache started. She saw a dr there and had a CT scan. They wanted to get [place] back to [place], so she flew back to [place]. She started not to feel well in the airport in [place], so they took her to the hospital. Pt states her headache seemed to get better, but her arm still a little weak. She was admitted to the hospital in [place] on 05/05/2021 and discharged 05/07/2021. In [place], her BP was 200/80. She had a CT of the head with no issues. CTA of head and neck which showed no carotid stenosis. MRI showed small emboli infarct R>L. ECHO with bubble study showed mild atrial dilation. Pt refused statin due to LDL being normal. Short run of PSVT on tele and cardio consulted. Recommended eliquis -pt declined start eliquis. Pt did start Plavix and HCTZ 12.5mg. Cardio recommends detention cardiac monitoring. Pt was not interested in starting amlodipine for HTN. She then caught a plane from [place] to [place], but the plane was diverted to [place] due to her losing consciousness. Pt is unsure whether her heart stopped while she was on the plane, but it sounds like they thought she passed out rather than coded. There was a doctor and teller coordinator on the plane which helped. She then remembers being in the ambulance after the plane landed in [place]. They did a CT scan of her head and neck with dye, and an enzyme test. She wasn't admitted to the hospital there and denied staying. Her son drove her back from [place] 05/08/2021. Pt can raise her arm now, but it still gets tired quickly. Pt denies further headaches. Pt states that she feels weak still, but she's able to get up and use the restroom. She feels like she's still recovering.HTN: BP is elevated today in office. Complaint with HCTZ. Still denies treatment with amlodipine. Denies CP, SOB, lightheadedness.Syncopal episode: Pt believes she only passed out. She wasn't defibrillated and doesn't believe they preformed CPR. cc Visit conducted via Telehealth--JONI. (made contact, not consistent video but it was established!)--due to COVID Pandemic. Pt consented to and proceeded with telehealth visit. I verified that the pt is who I was actually speaking with. Pt aware we are billing insurance.Allergic rhinitis: No reports of any new concerns. Vitamin D def: Continues with Vitamin D supplementation. Fatigue: Pt reports she's been feeling better, though she is still low on energy and tired. Denies any shortness of breath. Lowest temp was 99.9. Reports occasional headache, nausea, and trouble with balance. Reports problems with appetite, but does not report any loss of taste or smell. Most likely exposed via son or daughter. Some other virus is responsible. Chronic conditions Allergic rhin itis: No reports of any new concerns. Overweight: She reports that she is currently trying to lose weight. She is completing intermittent fasting and plans to lose 5-6 more pounds to goal weight of 173 lbs. She is exercising routinely with cardio, running, stretching, and aerobic classes. Vitamin D def: She is not taking her Vitamin D supplement routinely. She may take one tab once weekly. 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 She completed surgery and her vision has significantly improved since the procedure. Prior to the surgery she noticed a red streak going down her eye indicating internal bleeding. RHM: Declines mammograms. She is plans to complete a colonoscopy. No CP or SOB. She is suspicious that she had shingles but the physician she followed up with did not believe so. Her symptoms have cleared but now she has some scarring. She is fasting today. She is due for an eye exam but she has an eye exam coming up. No bowel changes, urinary symptoms, or GI symptoms. Functional Status Date Functional Assessmen t No Information Instructions Date Instruction Additional Infor mation Continue healthy t. Encouraged exercise. Mammogram and colonoscopy are UTD. Pt to consider DEXA. Declines vaccines. Follow up routinely in 6 months. Related to Body mass index [BMI] 27.0-27.9, adult Repeat vit D level today. Relate d to Vitamin D deficiency Pt has no residual w eakness or deficit. She declines all tx including anticoag, antihypertensive, or statin. Related to Hx of ischemic multifocal multiple vascular territories stroke See above. Related to Patie nt's noncompliance with other medical treatment and regimen due to unspecified reason Start Augmentin po B ID as below. Increase clear fluids, rest. Tests for flu A&B and COVID were negative in the office today. Related to Acute non-recurrent maxillary sinusitis Not taking any medic ation at this time. Pt declines treatment and wanted to discuss the use of marijuana and CBD oil to treat HTN. Advised we cannot endorse THC or CBD as treatment for HTN, especially with her hx of CVA, but she is welcome to explore CBD options which are OTC. Related to Essential hypertension Dietary management e ducation, guidance, and counseling Related to Body mass index (BMI) 27.0-27.9, adult Medication management With some tenderness on palpation of her sinuses and a lot of sinus pressure, we will start tx for sinusitis-- start Augmentin po BID x 7d. Continue drinking lots of clear fluids, take Mucinex, rest. Call with any new or worsening sx. Follow up routinely. Related to Acute non-recurrent maxillary sinusitis Overall symptoms are mild, manageable. Reviewed CDC's isolation and masking recommendations, pt voiced understanding. She will continue to rest, use Mucinex prn, and call with any worsening sx. Related to COVID-19 With R hemiparesis t hat resolved. She declines cardio visit. Related to Hx of ischemic multifocal multiple vascular territories stroke BP of 146/80 today. If you change your mind and becoming willing to take medications to treat, let me know. ---- Losartan and HCTZ 12.5mg -- pt claims she does not really take these medications. Perviously denied amlodipine. Notify office with CP, SOB, lightheadedness. Labs: CBC, CMP, Lipid Panel, A1c, TSH, Related to Essential hypertension Continue with Vit D supplement. Labs: Vit D RHM: Due for Mammogram - order sent to [facility] in office today. Due for Colon screening -- pt aware that she was contacted to schedule perviously -- order sent in office today.f/u in 6-9months.Charting performed by Chema, acting as scribe for Dr. Land.Dr. Land, DO: I reviewed the chart and agree with and approve of the documentation. Related to Vitamin D deficiency Dietary management e ducation, guidance, and counseling Related to Body mass index (BMI) 27.0-27.9, adult Medication management Will check vitamin D level today. Continue with vitamin D supplement. Charting performed by Cem Reese, acting as scribe for Mikaela Loza.MICHAEL Bianchi: I reviewed the chart and agree with and approve of the documentation Related to Vitamin D deficiency Persisting weakness, but improving. Offered PT - pt denied now. Notify office if you would like to try PT and we can send in the order. Related to Right hemiparesis Unclear if pt is a p oor historian. Suspected syncopal episode. Pt does not think she was defibrillated on the plane, but rather passed out. Referred to reel repairer for detention cardiac monitoring. Related to Syncope, unspecified syncope type Admitted to [facility] on 05/05/2021 and discharged 05/07/2021. Seen in [place] at an ED 05/07/2021 with syncopal episode and PSVT- pt signed herself out AMA. Refused statin, amlodipine, and eliquis. Refused hospital admission for further testing. Referred to reel repairer today, Dr. Díaz. Related to Hospital discharge follow-up With ectopic beats. BP of 146/86 and 160/92 today. Pt agreed to try losartan - start losartan. Continue with HCTZ 12.5mg. Denies amlodipine as above. Notify office with CP, SOB, lightheadedness. Follow up in 2 weeks for BP check, to discuss with our clinical pharmacist, and check kidney function. Related to Hypertension, unspecified type With R hemiparesis. Discussed options of continuing evaluation outpatient versus inpatient - pt does not want to go to the hospital currently. If you start getting any similar symptoms, go to the ER. Will refer to reel repairer for detention cardiac monitoring. Discussed that eliquis, amlodipine, and a statin would decrease your chances of having another stroke - pt still declines medication despite discussing risks of stroke and possible . Discussed that we could try the medications for a while and stop if desired - notify office if you change your mind about the medications. Continue with Plavix and HCTZ. Referred to reel repairer today, Dr. Díaz. Schedule appt in 2 weeks with [facility] pharmacist for BP check. Follow up with Dr. Land in two months. Related to Hx of ischemic multifocal multiple vascular territories stroke Dietary management e ducation, guidance, and counseling Related to Body mass index (BMI) 28.0-28.9, adult Disease process Urinary Incontinence Fall Risk Prevention Pt did not test posi tive for COVID despite previous exposure. Some other virus is responsible. Continue to rest and continue current meds. Pt declines flu shot at this time. Related to Fatigue, unspecified type Continue Vitamin D3 4,000 IU 1 tab daily. Will monitor.f/u in May as scheduled or sooner as needed.f/u on September 04 1:00 PM or sooner as needed Charting performed by Maile Blankenship, acting as scribe for Emery Reyes.Amy Sewing DO: I reviewed the chart and agree with and approve of the documentation Related to Vitamin D deficiency Symptoms stable. Con tinue to avoid triggers. Notify for worsening symptoms. Related to Allergic rhinitis, unspecified allergic rhinitis type Medication management Labs: A1c and M/C ra tioFollow up annually or sooner as needed. RHM:Declines DEXA due to exposure to radiation.Declines Mammogram.Declines pneumonia or shingle vaccinations.Charting performed by Cem Angulo, acting as scribe for Mikaela Loza. MICHAEL Bianchi: I reviewed the chart and agree with and approve of the documentation. Related to Encounter for screening for diabetes mellitus Continue to complete routine eye exams. Related to History of detached retina repair Labs: FLP Related to Scree laverne for lipid disorders Labs: CBC, CMP, and TSH Related to Encounter for screening for endocrine disorder Encouraged to schedu le Colonoscopy. Information provided for Dr. Sarabia and Dr. Gardiner, GI. Related to Screening for malignant neoplasm of colon BMI of 26.65 today. The patient is partaking in a intermittent fasting program with goal of losing 5-6 more pounds. Encouraged healthy dietary choices, increased activity, drinking plenty of water, and getting adequate sleep. Related to Overweight Encouraged to take V itamin D3 4,000 IU 1 tab daily. Will monitor. Labs: Vitamin D Related to Vitamin D deficiency Symptoms stable. Con tinue to avoid triggers. Notify for worsening symptoms. Related to Allergic rhinitis, unspecified allergic rhinitis type Urinary Incontinence Dietary management e ducation, guidance, and counseling Related to Body mass index (BMI) 26.0-26.9, adult Medication management Fall Risk Prevention Assessments Type Assessment Date No Information Patient Care Teams Name Effective Dates (start - stop) Status Members No Information
--- OUTSIDE RECORDS SUMMARY | 2024-11-10 21:41 | XMS_ITS | Referral Summary ---
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
--- OUTSIDE RECORDS SUMMARY | 2024-11-10 21:41 | XMS_ITS | Clinical Summary ---
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
== END 2024-11-10 21:00 | disposition left against medical advice (07) ==
LOC: ANHED 21:39
PROVIDERS: Emergency Medicine; Emergency Provider Physician Assistant; PCP Family Medicine
DX: U07.1 COVID-19 (principal); R94.31 Abnormal electrocardiogram [ECG] [EKG]
CPT/HCPCS: 36415; 71046; 80053; 83690; 84484; 85025; 85610; 85730; 87637; 93005; 99284

== ENCOUNTER 2024-11-22 15:04 | Outpatient (CLI) | payer OTHER, SELFPAY ==
--- OUTSIDE RECORDS SUMMARY | 2024-11-22 15:14 | XMS_ITS | Clinical Summary ---
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 Care Teams Coating Mixer Relationship Specialty Start Date End Date Maria E Land DO [address] [address] PCP - General 02/02/20
--- OUTSIDE RECORDS SUMMARY | 2024-11-22 15:14 | XMS_ITS | Clinical Summary ---
Author Organization [facility] Address [address] [place] [address] Phone Care Team Providers Care Tank Truck Mechanic Name Role Phone Soraya Escalera DO Primary Care Provider +1- [phone] Allergies Active Allergy Reactions Criticality Noted Date Comments Sulfa Antibiotics Rash High 02/09/2009 Medications No known medications Active Problems No known active problems Social History Tobacco Use Types Packs/Day Years Used Date Smoking Tobacco: Never Smokeless Tobacco: Never Tobacco Cessation:Counseling Given: Not Answered Comments Unknown Sex and Gender Information Value Date Recorded Sex Assigned at Not on file 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
--- OUTSIDE RECORDS SUMMARY | 2024-11-22 15:14 | XMS_ITS | Referral Summary ---
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
--- OUTSIDE RECORDS SUMMARY | 2024-11-22 15:14 | XMS_ITS | Continuity of Care Document ---
Author Organization [facility] Address [address] [place] [address] Phone Care Team Providers Care Parachute Marker Name Role Phone Sewing Maria E BRENNAN [...] 2021 VITAMIN D, 25-HYDROXY ROUTINE VENIPUNCTURE OFFICE [id number]-NML-[id number] BODY MASS INDEX DOCD SYST BP GE 130 - 139MM HG DIAST BP >= 90 MM HG SCREENING COLONOSCOPY (NOT HIGH RISK) Se p- OFFICE QABRX-SGC-ACRTECTE OFFICE UPHXB-RWC-XPPQCTHY BODY MASS INDEX DOCD SYST BP >= [...] CMP VITAMIN D, 25-HYDROXY ROUTINE VENIPUNCTURE OFFICE [id number]-XDT-OEKHTFUU INFLUENZA, RAPID INFLUENZA B, RAPID - OFFICE LAB 020 RAPID STREP A Specimen collection for COVID-19, Any So urce [facility] MED/CURRENT MED MERGE Advance Directives Directive Yes / No Effective Date File Name No Information Encounters Encounter Description Practice Location Reason(s) For Visit Diagnoses Date Provider Providers Copied on Encounter [employer] [facility], [address], [place], [place], [address] , tel: [phone] [place] No Information 3 Sewing Maria E. [address], [address], [place], [place], [address], . tel:[phone] [facility], [address], [place], [place], [address] , tel: [phone] [place] Thyroid nodule 3 Sewing Maria E. [address], [address], [place], [place], [address], . tel:[phone] [facility], [address], [place], [place], [address] , tel: [phone] [place] No Information 3 Sewing Maria E. [address], [place], [place], [address], [place]. tel:[phone] Referring Provider: Maria E Land, [address] [place] [address], [place], [address] . tel:[phone] OFFICE NEWKM-ADA-CTA J LUIS [facility], [address], [place], [place], [address] , tel:[phone] [place] Patient encounter (chief complaint) Body mass index [BMI] 27.0-27.9, adultEssential hypertensionHx of ischemic multifocal multiple vascular territories strokePatient' s noncompliance with other medical treatment and regimen due to unspecified reasonAcute non-recurrent maxillary sinusitisVitam in D deficiency 2 Maxine Hart. [address], [place], [place], [address], . tel:[phone] Referring Provider: Maria E Land, [address] [place] [address], [place], [address] . tel:[phone] [facility], [address], [place], [place], [address] , [place] [phone] [facility] No Information 2 Abdifatah Farah. [address] [facility], [address], [place], [place], [address], [place]. tel:[phone] Referring Provider: Maria E Land, [address] [place] [address], [place], [address] . tel:[phone] [facility], [address], [place], [place], [address] , [place] [phone] [place] Encounter for screening for malignant neoplasm of colon [address] [facility] [address] [address], [place], [address], [place]. tel:[phone] OFFICE IKASE-AJL-TZQ ANDED [facility], [address], [place], [place], [address] , [place] [phone] [place] Patient encounter (chief complaint) COVID-19Acute non-recurrent maxillary sinusitis 2 Maxine Hailey. [address], [place], [place], [address], [place]. tel:[phone] Referring Provider: Maria E Land, [address] [place] [address], [place], [address] . tel:[phone] [facility], [address], [place], [place], [address] , [place] [phone] [place] chronic conditions (chief complaint) Hx of ischemic multifocal multiple vascular territories strokeEssentia l hypertensionVi tamin D deficiencyBody mass index [BMI] 27.0-27.9, adultHistory of noncompliance with medical treatmentEncou nter for screening for diabetes mellitusEncoun ter for screening mammogram for malignant neoplasm of breastEncounte r for screening for malignant neoplasm of colon [address] [facility] [address], [facility] [address], [place], [place], [address], [place]. tel:[phone] Referring Provider: Maria E Land, [address] [place] [address], [place], [address] . tel:[phone] [facility], [address], [place], [place], [address] , tel: [phone] [facility] No Information 1 Dago Serrano. [address] [place] [address], [place] [address], [place], [place], [address], . tel:[phone] [facility], [address], [place], [place], [address] , tel: [phone] [place] No Information 1 Calebing Maria E. [address] [place] [address], [place], [place], [address], . tel:[phone] Referring Provider: Maria E Land, [address] [place] [address], [place], [address] . tel:[phone] [facility], [address], [place], [place], [address] , tel: [phone] [place] Hypertension, unspecified typeFamily history of G6PD [place] Maria E. [address] [place] [address], [place], [place], [address], . tel:[phone] Referring Provider: Maria E Land, [address] [place] [address], [place], [address] . tel:[phone] [facility], [address], [place], [place], [address] , tel: [phone] [place] Right hemiparesisWea knessOnychomyc osisPain of foot, unspecified laterality [place]ale[place] Maria E. [address] [place] [address], [place], [place], [address], . tel:[phone] Transitional Care- First 7 Days Of Discharge [facility], [address], [place], [place], [address] , tel: [phone] [place] hosp f/u (chief complaint) Body mass index (BMI) 28.0-28.9, adultHx of ischemic multifocal multiple vascular territories strokeHospital discharge follow-upHyper tension, unspecified typeSyncope, unspecified syncope typeRight hemiparesisVit griffin D deficiency 1 Dago Serrano. [address] [place] [address], [facility] [address], [place], [address], [place]. tel:[phone] Referring Provider: Maria E Land, [address] [place] [address], [place], [address] . tel:[phone] OFFICE JQISE-UDB-WIO ANDED [facility], [address], [place], [place], [address] , [place] tel: [phone] [place] cc (chief complaint) Allergic rhinitis, unspecified allergic rhinitis typeVitamin D deficiencyFati robert, unspecified type 0 Sewing Maria E. [address] [place] [address], [place] [address], [place], [address], [place]. tel:[phone] Referring Provider: Maria E Land, [address] [place] [address], [place], [address] . tel:[phone] [facility], [address], [place], [address] , [place] tel: [phone] [facility] No Information 0 Sewing Maria E. [address] [place] [address], [place] [address], [place], [place], [address], [place]. tel:[phone] Referring Provider: Maria E Land, [address] [place] [address], [place], [address] . tel:[phone] [facility], [address], [place], [address] , [place] tel: [phone] [place] Exposure to COVID-19 virus 0 Sewing Maria E. [address] [place] [address], [place] [address], [place], [address], [place]. tel:[phone] [facility], [address], [place], [address] , [place] tel: [phone] [facility] No Information 0 Yoandy Rizvi. [address] [address], [place], [place], [address], . tel:[phone] Referring Provider: Maria E Land, [facility] [address], [place], [address] . tel:[phone] [facility], [address], [place], [place], [address] , tel: [phone] [place] No Information [address] [facility] [address], [facility] [address], [place], [place], [address], [place]. tel:[phone] Referring Provider: Maria E Land, [facility] [address] [address], [place], [address] . tel:[phone] [facility], [address], [place], [place], [address] , tel: [phone] [place] Screening for breast cancer Emery Sanderson. [facility] [employer], [address] [place] [address], [place], [place], [address], [place]. tel:[phone] [facility], [address], [place], [address] , [place] tel: [phone] [place] Chronic conditions (chief complaint) Allergic rhinitis, unspecified allergic rhinitis typeVitamin D deficiencyBody mass index (BMI) 26.0-26.9, adultOverweigh tScreening for malignant neoplasm of colonEncounter for screening for endocrine disorderScreen ing for lipid disordersHisto ry of detached retina repairEncounte r for screening for diabetes mellitus [address] [facility] [employer], [address] [place] [address], [place], [place], [address], [place]. tel:[phone] Referring Provider: Maria E Land, [facility] [address], [place], [address] . tel:[phone] [facility], [address], [place], [address] , [place] tel: [phone] [place] Allergic rhinitis, unspecified allergic rhinitis typeVitamin D deficiencyEnco unter for screening for diabetes mellitusScreen ing for lipoid disordersEncou nter for screening for endocrine disorderEncoun ter for screening for malignant neoplasm of colon Jan- 8 Emery Sanderson. [address] [place] [address], [facility] [address], [place], [place], [address], [place]. tel:[phone] Referring Provider: Maria E Land, [address] [place] [address], [place], [address] . tel:[phone] [employer] [facility], [address], [place], [address] , [place] tel: [phone] [place] Allergic rhinitis, unspecified allergic rhinitis typeVitamin D deficiencyBila teral edema of lower extremityEncou nter for screening for malignant neoplasm of colon Jan- 7 [place] Maria E. [address], [facility] [address], [place], [place], [address], [place]. tel:[phone] Referring Provider: Maria E Land, [address] [place] [address], [place], [address] . tel:[phone] [facility], [address], [place], [address] , [place] tel: [phone] [place] Chorioretinal scar of left eye after surgery for detachmentUnsp ecified visual disturbance 6 [place] Maria E. [address], [facility] [address], [place], [place], [address], [place]. tel:[phone] [facility], [address], [place], [address] , [place] tel: [phone] [place] Acute maxillary sinusitis, recurrence not specifiedOnych omycosisVitami n D deficiency [address] [facility] [address], [place], [place], [address], [place]. tel:[phone] Referring Provider: Maria E Land, [facility] [address], [place], [address] . tel:[phone] [facility], [address], [place], [address] , [place] tel: [phone] [place] Allergic rhinitis, unspecified allergic rhinitis typeAdult general medical examinationHx of sinusitisOnych omycosisEncoun ter for screening for malignant neoplasm of colon 6 Emery Sanderson. [address], [place], [place], [address], [place]. tel:[phone] Referring Provider: Maria E Land, [address], [place], [address] . tel:[phone] Family History Family Member Type Diagnosis Age At Onset Father Problem (finding) hypertension Mother Problem (finding) Allergies Mother Problem (finding) stroke Mother Problem (finding) malignant neoplasm of l michael Mother Problem (finding) hypertension Payers Payer name Insurance type Covered democrat ID Authormoustapha farnsworth(s) [facility] [id number] Social History Type Description Quantity Date Captured [...] ordered Referral Referred To: Gagan Gardiner MD [address] [place] [address]
[facility] [place], [place], [phone] Ordered: Referrals: Gastroenterology. Gagan Gardiner MD. Evaluation/diagnostic/treatment - Level 3 Appointment date/timeframe: 06/14/2022 ordered Referral Referred To: Gagan Gardiner MD [address] [facility] [place], [phone] Ordered: Referrals: Gastroenterology. Gagan Gardiner MD. Evaluation/diagnostic/treatment - Level 3 ordered Referral Ordered: SCREENING MAMMOGRAM (CAD) Bilateral breast ordered Referral Referred To: Physical Therapy [address] [place], [phone] Ordered: Referrals: Physical Therapy. Location: [facility] Physical Therapy [facility]. Evaluation/diagnostic/treatment - Level 3 ordered Referral Referred To: Meño Stewart DPM [address], [phone] Ordered: Referrals: Podiatry. Meño Stewart DPM. Evaluation/diagnostic/treatment - Level 3 Appointment date/timeframe: 05/28/2021 ordered Referral Referred To: Alfredo Bar MD [address] [place], [phone] Ordered: Referrals: Cardiology. Alfredo Bar MD. Evaluation/diagnostic/treatment - Level 3 ordered Referral Referred To: [address] [place], [phone] Ordered: Screening mammography of both breasts ordered Future Order: Radiology Order Th yroid ultrasound ([id number]), Sent on: Sent Future Order: Radiology Order SC REENING MAMMOGRAM (CAD) Bilateral breast ([id number]), Body Site: breast, Sent on: Sent History [...] just dehydrated from lack of fluid in [place].Vit D: Pt is med compliant with Vit [...] just dehydrated from lack of fluid in [place].Vit D: Pt is med compliant with Vit D supplement. HTN: 130/ 70ish when she check BP at home today. Pt initially said she was taking it and then later on says she actually does not take it and doesn't want to. Last visit, she declined amlodipine. Denies CP, SOB, lightheadedness. hosp f/u Stroke/ Hosp fu: Pt was in [place] and had a severe headache and couldn't control her R arm. Pt states that she was feeling normal and healthy in [place] up until the headache started. She saw a dr there and had a CT scan. They wanted to get [place] back to [place], so she flew back to [place]. She started not to feel well in the airport in [place], so they took her to the hospital. Pt states her headache seemed to get better, but her arm still a little weak. She was admitted to the hospital in [place] on 05/05/2021 and discharged 05/07/2021. In [place], her BP was 200/80. She had a [...] start Plavix and HCTZ 12.5mg. Cardio recommends penitentiary cardiac monitoring. Pt was not interested in starting amlodipine for HTN. She then caught a plane from [place] to [place], but the plane was diverted to [place] due to her losing consciousness. Pt is unsure whether her heart stopped while she was on the plane, but it sounds like they thought she passed out rather than coded. There was a doctor and foreign agent on the plane which helped. She then remembers being in the ambulance after the plane landed in [place]. They did a CT scan of her head and neck with dye, and an enzyme test. She wasn't admitted to the hospital there and denied staying. Her son drove her back from [place] 05/08/2021. Pt can raise her arm now, [...] Due for Mammogram - [facility] in office today. Due for Colon [...] plane, but rather passed out. Referred to farm equipment mechanic apprentice for penitentiary cardiac monitoring. Related to Syncope, unspecified syncope type Admitted to [facility] on 05/05/2021 and discharged 05/07/2021. Seen in [place] at an ED 05/07/2021 with syncopal episode and PSVT- pt signed herself out AMA. Refused statin, amlodipine, and eliquis. Refused hospital admission for further testing. Referred to farm equipment mechanic apprentice today, Dr. Díaz. Related to Hospital discharge [...] go to the ER. Will refer to farm equipment mechanic apprentice for penitentiary cardiac monitoring. Discussed that eliquis, amlodipine, and a statin would decrease your chances of having another stroke - pt still declines medication despite discussing risks of stroke and possible . Discussed that we could try the medications for a while and stop if desired - notify office if you change your mind about the medications. Continue with Plavix and HCTZ. Referred to farm equipment mechanic apprentice today, Dr. Díaz. Schedule appt in 2 [...] Maile Blankenship, acting as scribe for Emery Reyes.mAy Sewing DO: I reviewed the chart and [...]
--- OUTSIDE RECORDS SUMMARY | 2024-11-22 15:14 | XMS_ITS | Clinical Summary ---
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 Gender Identity Not on file Sexual Orientation Not on file Occupation Industry Job Start Date Job End Date Not on file Not on file Not on file Not on file Last Filed Vital Signs Vital Sign Reading Time Taken Comments Blood Pressure 131/85 03/02/2012 12:44 PM CDT Pulse 73 03/02/2012 12:44 PM CDT Temperature 36.4 C (97.6 F) 03/02/2012 12:44 PM CDT Respiratory Rate 16 03/02/2012 12:44 PM CDT [...] Sig/CT Colonography Q 5 years Discontinued Insurance [facility] Advance Directives For more information, please contact: [phone] * Full Code (Latest Code Status on File) Date Activated Date Inactivated Comments 03/01/2012 11:22 AM 03/02/2012 5:03 PM
--- OUTSIDE RECORDS SUMMARY | 2024-11-22 15:14 | XMS_ITS | Encounter Summary ---
Author Organization [facility] Address [address] [place] [address] Care Team Providers Care Briquette Machine Operator Helper Name Role Phone Sary Perez DO Primary Care Provider [phone] Encounter Details Date Type Department Care Team (Latest Contact Info) Description 02/14/2009 Outpatient Historical [facility], [address] [place] [address] 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
[2024-11-22 19:38] LABS: Influenza A QL RT-PCR Negative (Negative); Influenza B QL RT-PCR Negative (Negative); RSV RNA, RT-PCR Negative (Negative); SARS-CoV-2 RNA PCR Negative (Negative)
== END 2024-11-22 15:05 | disposition home or self-care (01) ==
LOC: ANHGOSHLAB 15:06
PROVIDERS: PCP Family Medicine; Visit Provider Nurse Practitioner
DX: U07.1 COVID-19 (principal)
CPT/HCPCS: 87637